=== PATIENT | female | born 1980 ===

== ENCOUNTER 2017-03-30 12:40 | Emergency (ER) | payer SELFPAY ==
[~2017-03-30] VITALS: Ht 162.6 cm; Wt 63.5 kg
[2017-03-30] MEDS ORDERED: IBUPROFEN PO (12:56)
[2017-03-30 13:27] LABS: *URINE HCG, QUAL NEGATIVE (NEGATIVE)
--- NOTE | 2017-03-30 14:25 | NUR ---
DR WOODARD MADE PATIENT AWARE OF RESULTS WILL BE DC HOME.
--- NOTE | 2017-03-30 14:26 | NUR ---
Patient discharged to home in stable conditon. Written and verbal after care instructions given. Patient verbalizes understanding of instructions. Patinet with normal steady gait.
[2017-03-30 14:30] VITALS: BP 118/76
== END 2017-03-30 14:31 | disposition home or self-care (01) ==
LOC: ER 12:46
DX: M54.9 Dorsalgia, unspecified (principal); R07.9 Chest pain, unspecified; M51.24 Other intervertebral disc displacement, thoracic region; M53.82 Other specified dorsopathies, cervical region; V43.52XA Car driver injured in collision with other type car in traffic accident, initial encounter; Y92.410 Unspecified street and highway as the place of occurrence of the external cause; Y93.89 Activity, other specified; Y99.8 Other external cause status
CPT/HCPCS: 72072; 72100; 84703; A4663